=== PATIENT | female | born 1995 | race Caucasian/White ===

== ENCOUNTER 2017-06-17 04:26 | Emergency (ER) | payer OTHER ==
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
[2017-06-17 05:09] VITALS: BP 146/79; PULSE 115; TEMP 97.9; BMI 22.3
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
== END 2017-06-17 05:30 | disposition home or self-care (01) ==
LOC: JER 04:26
DX: S09.8XXA Other specified injuries of head, initial encounter (principal); Y04.2XXA Assault by strike against or bumped into by another person, initial encounter; Y93.89 Activity, other specified; Y92.59 Other trade areas as the place of occurrence of the external cause; Y99.8 Other external cause status
CPT/HCPCS: 99281-25

== ENCOUNTER 2022-06-10 12:09 | Emergency (ER) | payer SELFPAY ==
[2022-06-10 12:21] VITALS: BP 133/94; PULSE 77; RESP 18; BMI 22.3
[2022-06-10] MEDS ORDERED: predniSONE 20 MG TABLET (UD) PO ONE (12:58)
[2022-06-10] MEDS ORDERED: predniSONE 20 MG TABLET (UD) ONE (13:06)
== END 2022-06-10 14:02 | disposition home or self-care (01) ==
LOC: JER 12:09
DX: T78.3XXA Angioneurotic edema, initial encounter (principal)
CPT/HCPCS: 99283-25

== ENCOUNTER 2023-07-18 06:06 | Emergency (ER) | payer OTHER ==
[2023-07-18 06:12] VITALS: BP 120/67; PULSE 115; RESP 18; TEMP 98.1; BMI 20.5
[2023-07-18] MEDS ORDERED: DIPHTH,PERTUSS(ACELL),TET 0.5 ML DISP.SYRIN IM ONE ×2 (07:59→08:03)
== END 2023-07-18 08:16 | disposition home or self-care (01) ==
LOC: JER 06:06
PROC: 0HQEXZZ Repair Left Lower Arm Skin, External Approach (ICD-10-PCS; principal; 2023-07-18)
PROC: 3E0234Z Introduction of Serum, Toxoid and Vaccine into Muscle, Percutaneous Approach (ICD-10-PCS; 2023-07-18)
DX: S51.812A Laceration without foreign body of left forearm, initial encounter (principal); X58.XXXA Exposure to other specified factors, initial encounter
CPT/HCPCS: 90715; 99282-25

== ENCOUNTER 2023-07-27 13:48 | Emergency (ER) | payer OTHER ==
[2023-07-27 13:52] VITALS: BP 101/53; PULSE 75; RESP 18; TEMP 97.9; BMI 21.1
== END 2023-07-27 14:45 | disposition home or self-care (01) ==
LOC: JERFT 13:48
DX: Z48.02 Encounter for removal of sutures (principal)
CPT/HCPCS: 99281-25

== ENCOUNTER 2025-01-20 20:06 | Emergency (ER) | payer OTHER ==
[2025-01-20 20:11] VITALS: BMI 20.5
[2025-01-20] MEDS ORDERED: ACETAMINOPHEN INJECTION 100 ML ONE (20:45)
[2025-01-20] MEDS ORDERED: FAMOTIDINE 20 MG/50 ML IVPB 20 MG/50 ML MG IVPB ONE (20:45)
[2025-01-20] MEDS: FAMOTIDINE 20 MG/50 ML IVPB 20 MG/50 ML MG IVPB ONE (21:05)
[2025-01-20] MEDS: ACETAMINOPHEN 1000 MG/100 ML BAG IVPB ONE (21:15)
[2025-01-20] MEDS: SODIUM CHLORIDE 0.9% 500 ML INFUS.BAG IV ONE (21:16)
[2025-01-20] MEDS ORDERED: ONDANSETRON 4 MG/2 ML VIAL ONE ×2 (21:21→23:22)
[2025-01-20 21:25] LABS: ABSOLUTE IMMATURE GRANULOCYTES 0.03 x10^3/uL (0.0-0.031); BASOPHILS # 0.03 x10^3/uL (0.01-0.08); EOSINOPHIL % 0.2 % (0.7-5.8); EOSINOPHILS # 0.02 x10^3/uL (0.04-0.36); HEMATOCRIT 40.1 % (34.1-44.9); MCHC 32.4 g/dl (32.2-35.5); MEAN CELL VOLUME 96.9 fl (79.4-94.8); MEAN PLT VOLUME 9.8 fl (9.4-12.3); MONOCYTE % 5.9 % (4.7-12.5); PLATELET COUNT 239 x10^3/uL (182-369); RDW 13.2 % (12.1-16.5)
[2025-01-20] MEDS: ONDANSETRON 4 MG/2 ML VIAL IVPB ONE (21:36)
[2025-01-20 21:44] LABS: POTASSIUM 3.7 mmol/L (3.5-5.1)
[2025-01-20 21:47] LABS: CALCIUM 9.4 mg/dL (8.5-10.1)
[2025-01-20 21:48] LABS: BLOOD UREA NITROGEN 8.4 mg/dL (7-18); MAGNESIUM 1.9 mg/dL (1.8-2.4)
[2025-01-20 21:51] LABS: CREATININE 0.7 mg/dL (0.55-1.3)
[2025-01-20 21:52] LABS: BILIRUBIN,TOTAL 0.7 mg/dL (0.2-1); TOT PROT 6.7 g/dl (6.4-8.2)
[2025-01-20 22:51] VITALS: BP 108/63; PULSE 54; RESP 20; TEMP 97.9
[2025-01-20] MEDS ORDERED: MAG HYDROX/AL HYDROX/SIMETH 30 ML UNIT-DOSE CUP ONE (23:21)
[2025-01-20] MEDS ORDERED: KETOROLAC TROMETHAMINE 15 MG/ML VIAL ONE (23:22)
[2025-01-20] MEDS: KETOROLAC TROMETHAMINE 15 MG/ML VIAL IVPUSH ONE (23:35)
[2025-01-20] MEDS: ONDANSETRON 4 MG/2 ML VIAL IVPUSH ONE (23:35)
[2025-01-20] MEDS: MAG HYDROX/AL HYDROX/SIMETH 30 ML UNIT-DOSE CUP PO ONE (23:36)
[2025-01-21 00:13] LABS: PH,URINE 5.5 (5.0-8.0); URINE APPEARANCE CLEAR; URINE BILIRUBIN NEGATIVE (NEGATIVE); URINE COLOR YELLOW; URINE GLUCOSE (UA) NEGATIVE (NEGATIVE); URINE KETONE 15 mg/dl (NEGATIVE)
[2025-01-21 00:14] LABS: URINE LEUK ESTERASE NEGATIVE (NEGATIVE); URINE NITRITE NEGATIVE (NEGATIVE); URINE PROTEIN NEGATIVE (NEGATIVE); URINE UROBILINOGEN 0.2 mg/dL (0.2-1.0)
== END 2025-01-20 23:53 | disposition home or self-care (01) ==
LOC: JER 20:06
PROC: 3E033GC Introduction of Other Therapeutic Substance into Peripheral Vein, Percutaneous Approach (ICD-10-PCS; principal; 2025-01-20)
PROC: 3E033NZ Introduction of Analgesics, Hypnotics, Sedatives into Peripheral Vein, Percutaneous Approach (ICD-10-PCS; 2025-01-20)
PROC: 3E0333Z Introduction of Anti-inflammatory into Peripheral Vein, Percutaneous Approach (ICD-10-PCS; 2025-01-20)
PROC: 3E033GC Introduction of Other Therapeutic Substance into Peripheral Vein, Percutaneous Approach (ICD-10-PCS; 2025-01-20)
PROC: 3E033GC Introduction of Other Therapeutic Substance into Peripheral Vein, Percutaneous Approach (ICD-10-PCS; 2025-01-20)
DX: R11.2 Nausea with vomiting, unspecified (principal); R19.7 Diarrhea, unspecified; R10.13 Epigastric pain; R42 Dizziness and giddiness; R07.9 Chest pain, unspecified; R55 Syncope and collapse
CPT/HCPCS: 36415; 71045-TC-FY; 74177-TC; 80053; 81003; 83690; 83735; 84484; 84703; 85025; 87086; 93005; 93010; 99285-25; J0131; Q9967